=== PATIENT | male | born 1980 | race Two or more races ===

== ENCOUNTER 2020-12-05 21:46 | Emergency (ER) | payer MEDICAID ==
[~2020-12-05] VITALS: Ht 167.6 cm; Wt 68.2 kg
[2020-12-05] MEDS ORDERED: ACETAMINOPHEN 500 MG TABLET PO ONE (23:15)
[2020-12-05] MEDS ORDERED: IBUPROFEN 800 MG TABLET PO ONE (23:15)
[2020-12-05] MEDS ORDERED: PERTUSS(ACELL),DIPH,TET VAC/PF 0.5 ML SYRINGE IM. ONE (23:15)
[2020-12-05 23:30] VITALS: BP 135/75
== END 2020-12-05 23:50 | disposition home or self-care (01) ==
LOC: EMS 21:49
DX: S01.111A Laceration without foreign body of right eyelid and periocular area, initial encounter (principal); W50.0XXA Accidental hit or strike by another person, initial encounter; Y93.89 Activity, other specified; Y92.89 Other specified places as the place of occurrence of the external cause; Y99.8 Other external cause status
CPT/HCPCS: 12011; 90471; 90715; 99283

== ENCOUNTER 2021-05-18 21:16 | Inpatient (IN) | payer MEDICAID ==
[~2021-05-18] VITALS: Ht 152.4 cm; Wt 73.4 kg
[2021-05-18 22:27] LABS: BASOPHILS % (AUTO) 0.9 % (0.0-2.0); EOSINOPHILS % (AUTO) 1.8 % (1.0-6.0); HEMATOCRIT 48.7 % (41-53); HEMOGLOBIN 16.5 g/dL (13.5-17.5); LYMPHOCYTES % (AUTO) 28.2 % (22.0-44.0); MEAN CORPUSCULAR HEMOGLOBIN 30.4 pg (26.0-34.0); MEAN CORPUSCULAR HGB CONC 33.9 G/dL (31.0-37.0); MEAN CORPUSCULAR VOLUME 90 fL (80-100); MONOCYTES # (AUTO) 0.7 K/uL (0.1-1.0); MONOCYTES % (AUTO) 6.9 % (2.0-9.0); NEUTROPHILS # (AUTO) 6.7 K/uL (1.8-7.7); NEUTROPHILS % (AUTO) 62.2 % (40.0-70.0); PLATELET COUNT (AUTO) 299 K/uL (150-450); RED BLOOD CELL COUNT(AUTO) 5.42 MIL/uL (4.50-5.90); RED CELL DISTRIBUTION WIDTH 13.5 % (11.5-14.5)
[2021-05-18 22:39] LABS: ANION GAP 8 mmol/L (8-16); CALCIUM, TOTAL 9.6 mg/dL (8.8-10.5); CARBON DIOXIDE 28 mmol/L (22-29); CHLORIDE 101 mmol/L (98-107); CREATININE 0.91 mg/dL (0.60-1.30); GLOMERULAR FILTR. RATE CALC > 60 mL/min (>60); GLUCOSE,RANDOM 110 mg/dL (70-110); POTASSIUM 4.4 mmol/L (3.5-5.1); SODIUM SERUM 137 mmol/L (136-145); UREA NITROGEN, BLOOD 18 mg/dL (7-18)
[2021-05-18 22:46] LABS: ALANINE AMINOTRANSFERASE 38 U/L (12-78); ALBUMIN 4.4 g/dL (3.4-5.0); ALKALINE PHOSPHATASE 120 U/L (46-116); ASPARTATE AMINOTRANSFERASE 17 U/L (15-37); BILIRUBIN,TOTAL 0.2 mg/dL (0.1-1.0); TOTAL PROTEIN, SERUM 9.1 g/dL (6.4-8.2)
[2021-05-18 23:14] LABS: AMPHET/METH SCREEN,URINE POSITIVE (NEGATIVE); BARBITURATE SCREEN, URINE NEGATIVE (NEGATIVE); BENZODIAZEPINES SCREEN,URINE NEGATIVE (NEGATIVE); CANNABINOID SCREEN,URINE NEGATIVE (NEGATIVE); COCAINE SCREEN,URINE NEGATIVE (NEGATIVE); METHADONE SCREEN, URINE NEGATIVE (NEGATIVE); OPIATE SCREEN,URINE NEGATIVE (NEGATIVE)
[2021-05-18 23:15] LABS: PHENCYCLIDINE SCREEN,URINE NEGATIVE (NEGATIVE)
[2021-05-18 23:29] LABS: COVID AG,FIA SOURCE NASOPHARYNGEAL
[2021-05-19] MEDS ORDERED: OLANZapine 5 MG RAPDIS TABLET PO PRN ×2
[2021-05-19] MEDS ORDERED: ZOLPIDEM TARTRATE 10 MG TABLET PO PRN ×2
[2021-05-19] MEDS ORDERED: LORazepam 2 MG TABLET PO PRN ×2
[2021-05-19 00:34] LABS: APPEARANCE,URINE CLEAR (CLEAR); BILIRUBIN,URINE NEGATIVE (NEGATIVE); GLUCOSE, URINE (UA) NEGATIVE (NEGATIVE); KETONES,URINE NEGATIVE (NEGATIVE); LEUKOCYTE ESTERASE ,URINE NEGATIVE (NEGATIVE); NITRATE,URINE NEGATIVE (NEGATIVE); OCCULT BLOOD,URINE NEGATIVE (NEGATIVE); PROTEIN,URINE NEGATIVE (NEGATIVE); UROBILINOGEN,URINE 0.2 mg/dL (<=1.0)
[2021-05-19 00:42] LABS: CHOL/HDL RATIO 6.3 (4.2-7.3); CHOLESTEROL 298 mg/dL (131-200); HDL CHOLESTEROL 47 mg/dL (40-60); LDL CHOL (CALC.) 195 mg/dL (0-130); TRIGLYCERIDES 279 mg/dL (15-150)
[2021-05-19 01:28] LABS: RBC,URINE 0-2 /HPF (0-2)
[2021-05-19 01:29] LABS: BACTERIA,URINE Many /HPF (None Seen); WBC,URINE 0-2 /HPF (0-5)
[2021-05-19 08:45] VITALS: BP 152/100
[2021-05-19] MEDS ORDERED: INFLUENZA VIRUS VACCINE QVS 2021-22 (6MO+)/PF 60 MCG/0.5 ML SYRINGE IM. ONE (11:00)
[2021-05-19] MEDS ORDERED: PROMETHAZINE HCL 25 MG TABLET PO PRN (13:45)
[2021-05-19] MEDS ORDERED: TUBERCULIN, PURIFIED PROTEIN DERIVATIVE 5 TU/0.1 ML SYRINGE ID ONE (13:45)
[2021-05-19] MEDS ORDERED: LOPERAMIDE HCL 2 MG CAPSULE PO PRN (13:45)
[2021-05-19] MEDS ORDERED: MAGNESIUM HYDROXIDE SUSPENSION 30 ML UDCUP PO PRN (13:45)
[2021-05-19] MEDS ORDERED: ACETAMINOPHEN 325 MG TABLET PO PRN (13:45)
[2021-05-19] MEDS ORDERED: HydrOXYzine PAMOATE 50 MG CAPSULE PO PRN (13:45)
[2021-05-19] MEDS ORDERED: MAG HYDROX/AL HYDROX/SIMETH ES 30 ML SUSPENSION UDCUP PO PRN (13:45)
[2021-05-19] MEDS ORDERED: GuaiFENesin/D-METHORPHAN [SUGAR-FREE] 200-20MG/10 ML SYRUP UDCUP PO PRN (13:45)
[2021-05-19] MEDS: ATORVASTATIN CALCIUM 40 MG TABLET PO SCH (15:00)
[2021-05-19] MEDS: ATENOLOL 25 MG TABLET PO SCH (16:24)
[2021-05-19] MEDS: THIAMINE 100 MG TABLET PO SCH (16:24)
[2021-05-19 16:39] VITALS: BP 158/89
[2021-05-19] MEDS: MELATONIN 5 MG TABLET PO SCH (20:05)
[2021-05-19] MEDS ORDERED: OLANZapine 5 MG RAPDIS TABLET PO SCH (21:00)
[2021-05-20 07:29] LABS: HEMOGLOBIN A1C 5.9 % (3.8-5.6)
[2021-05-20 07:48] LABS: CHOL/HDL RATIO 6.3 (4.2-7.3); FREE T4 (FREE THYROXINE) 1.05 ng/dL (0.76-1.46); THYROID STIMULATING HORMONE 1.63 uIU/mL (0.36-3.74)
[2021-05-20 08:20] VITALS: BP 129/86
[2021-05-20] MEDS: NALTREXONE HCL 50 MG TABLET PO SCH (10:08)
[2021-05-20] MEDS: FOLIC ACID 1 MG TABLET PO SCH (10:14)
[2021-05-20] MEDS: THIAMINE 100 MG TABLET PO SCH ×2 (10:14→16:11)
[2021-05-20] MEDS: ATORVASTATIN CALCIUM 40 MG TABLET PO SCH (10:14)
[2021-05-20] MEDS: OMEGA-3/DHA/EPA/FISH OIL 1,000 MG CAPSULE PO SCH (10:14)
[2021-05-20] MEDS: ATENOLOL 25 MG TABLET PO SCH ×2 (10:14→16:11)
[2021-05-20] MEDS: MULTIVITAMINS WITH MINERALS, THERAPEUTIC TABLET PO SCH (10:15)
[2021-05-20 16:19] VITALS: BP 107/77
[2021-05-20] MEDS: MELATONIN 5 MG TABLET PO SCH (20:12)
[2021-05-20] MEDS ORDERED: OLANZapine 10 MG RAPDIS TABLET PO SCH (21:00)
[2021-05-21 08:00] VITALS: BP 125/80
[2021-05-21] MEDS: OMEGA-3/DHA/EPA/FISH OIL 1,000 MG CAPSULE PO SCH (08:22)
[2021-05-21] MEDS: NALTREXONE HCL 50 MG TABLET PO SCH (08:22)
[2021-05-21] MEDS: FOLIC ACID 1 MG TABLET PO SCH (08:22)
[2021-05-21] MEDS: ATORVASTATIN CALCIUM 40 MG TABLET PO SCH (08:22)
[2021-05-21] MEDS: MULTIVITAMINS WITH MINERALS, THERAPEUTIC TABLET PO SCH (08:22)
[2021-05-21] MEDS: THIAMINE 100 MG TABLET PO SCH (08:22)
[2021-05-21] MEDS: ATENOLOL 25 MG TABLET PO SCH (08:23)
[2021-05-21] MEDS ORDERED: NALT50TA PO (10:55)
[2021-05-21] MEDS ORDERED: OMEG-135 PO (10:55)
[2021-05-21] MEDS ORDERED: MELA5TAB40 PO (10:55)
[2021-05-21] MEDS ORDERED: OLAN10TA26 PO (10:55)
[2021-05-21] MEDS ORDERED: ATEN-73 PO (11:30)
[2021-05-21] MEDS ORDERED: ATOR40TA28 PO (11:30)
== END 2021-05-21 18:00 | disposition home or self-care (01) | DRG 885 ==
LOC: EMS 21:18 → 3EC 05-19 05:00
PROVIDERS: ADMIT Psychiatry & Neurology Psychiatry; ATTEND Psychiatry & Neurology Psychiatry
DX: F20.0 Paranoid schizophrenia (principal); E78.5 Hyperlipidemia, unspecified; F15.10 Other stimulant abuse, uncomplicated; F32.A Depression, unspecified; Z55.9 Problems related to education and literacy, unspecified; Z59.9 Problem related to housing and economic circumstances, unspecified; Z65.3 Problems related to other legal circumstances; Z87.891 Personal history of nicotine dependence; Z20.822 Contact with and (suspected) exposure to COVID-19
CPT/HCPCS: 80053; 80061; 81001; 81003; 83036; 84439; 84443; 85025; 86592; 87086; 90686; 93005; 99285; G0480; Q9967